=== PATIENT | male | born 1955 | race Caucasian/White ===

== ENCOUNTER 2020-06-28 09:43 | Outpatient (CLI) | payer BC | END 2020-06-28 09:44 | disposition home or self-care (01) | LOC: CSHMRI 09:43 | PROVIDERS: ATTEND Family Medicine | DX: M54.10 Radiculopathy, site unspecified (principal); Z98.890 Other specified postprocedural states; M48.061 Spinal stenosis, lumbar region without neurogenic claudication; M51.26 Other intervertebral disc displacement, lumbar region; M51.86 Other intervertebral disc disorders, lumbar region | CPT/HCPCS: 72158 ==

== ENCOUNTER 2021-04-20 12:24 | Outpatient (CLI) | payer MEDICARE, BC | END 2021-04-20 12:25 | disposition home or self-care (01) | LOC: CSHCT 12:24 | PROVIDERS: ATTEND Family Medicine | DX: R91.8 Other nonspecific abnormal finding of lung field (principal); J18.0 Bronchopneumonia, unspecified organism | CPT/HCPCS: 71250 ==

== ENCOUNTER 2021-08-02 13:56 | Outpatient (CLI) | payer MEDICARE, BC ==
[2021-08-03 11:56] LABS: SARS-CoV-2 PCR by NAA Not Detected (NotDetected)
== END 2021-08-02 13:57 | disposition home or self-care (01) ==
LOC: CSHLAB 13:56
PROVIDERS: ATTEND Internal Medicine Hematology & Oncology
DX: Z20.822 Contact with and (suspected) exposure to COVID-19 (principal)
CPT/HCPCS: U0003; U0005

== ENCOUNTER 2021-08-06 07:25 | Day surgery (SDC) | payer MEDICARE, BC ==
[2021-08-06 09:47] VITALS: BP 121/61; TEMP 97.7
[2021-08-06] MEDS ORDERED: Fentanyl 100 MCG/2 ML VIAL ONE (09:55)
[2021-08-06] MEDS ORDERED: Midazolam HCl 2 mg/2 ml Vial ONE (09:56)
[2021-08-06] MEDS ORDERED: Lidocaine 1% PF 5 ML VIAL ONE (10:22)
== END 2021-08-06 11:50 | disposition home or self-care (01) ==
LOC: CSHCT 07:25
PROVIDERS: ATTEND Internal Medicine Hematology & Oncology
PROC: 07DR3ZX Extraction of Iliac Bone Marrow, Percutaneous Approach, Diagnostic (ICD-10-PCS; principal; 2021-08-06)
DX: D61.811 Other drug-induced pancytopenia (principal); C34.82 Malignant neoplasm of overlapping sites of left bronchus and lung
CPT/HCPCS: 77012; 77386; 88184; 88237; 88264; 88280; 99152; J1642; J2250; J3010

== ENCOUNTER 2021-10-19 13:21 | Emergency (ER) | payer MEDICARE, BC ==
[~2021-10-19 13:21] MED LIST: Iopamidol 370 76% 100 ML VIAL ONE
[2021-10-19 14:21] LABS: Hemoglobin 6.9 g/dL (13.5-17.5); Mean Corpuscular HGB CONC 33.3 g/dL (32.0-36.0); Mean Corpuscular Hemoglobin 35.4 pg (27.0-33.0); Mean Corpuscular Volume 106.2 fl (81.2-95.1); Platelet Count 48 10x3/uL (150-450); RBC Distribution Width 16.7 % (11.5-14.5); Red Blood Cell (RBC) Count 1.95 10x6/uL (4.32-5.72)
[2021-10-19 14:32] LABS: ALT (SGPT) 25 U/L (8-55); AST (SGOT) 31 U/L (5-34); Albumin 3.8 g/dL (3.4-4.8); Alkaline Phosphatase 91 U/L (40-110); Anion Gap 15 mmol/L (10-20); BUN (Urea Nitrogen) 21 mg/dL (8.4-25.7); Bilirubin, Total 1.3 mg/dL (0.2-1.2); Calc. Creatinine Clearance 0 mL/min (70-130); Calcium 8.7 mg/dL (7.8-10.44); Carbon Dioxide 25 mmol/L (23-31); Chloride 103 mmol/L (98-107); Estimated GFR 91; Globulin 3.2 g/dL (2.4-3.5); Glucose 138 mg/dL (80-115); Potassium 3.9 mmol/L (3.5-5.1); Sodium 139 mmol/L (136-145)
[2021-10-19 14:40] LABS: SARS-CoV-2 NAA Rapid Test Not Detected (NotDetected)
[2021-10-19 14:43] LABS: MDiff Complete? YES
[2021-10-19 14:44] LABS: CKMB 2.7 ng/mL (0-6.6)
[2021-10-19 14:51] LABS: Eosinophils 4 % (0-10); Lymphocytes 32 % (21-51); Monocytes 14 % (0-10); Neutrophil 48 % (42-75); Reactive Lymphocytes 2 % (0-10)
[2021-10-19 14:55] LABS: Anisocytosis SLIGHT = 6-15 cells (100X) (0-5/hpf); Hypochromia SLIGHT = 6-15 cells (100X) (0-5/hpf); Macrocytosis SLIGHT = 6-15 cells (100X) (0-5/hpf); Polychromasia SLIGHT = 2-3 cells (100X) (0-2/hpf)
[2021-10-19 14:56] LABS: Platelet Morphology Comment Appears Decreased; Toxic Granulation SLIGHT
[2021-10-19 16:59] LABS: Troponin I 0.024 ng/mL (< 0.028)
== END 2021-10-19 18:25 | disposition home or self-care (01) ==
LOC: CSHERS 13:21
DX: C34.91 Malignant neoplasm of unspecified part of right bronchus or lung (principal); D61.818 Other pancytopenia; D46.9 Myelodysplastic syndrome, unspecified; I25.10 Atherosclerotic heart disease of native coronary artery without angina pectoris; I10 Essential (primary) hypertension; E78.5 Hyperlipidemia, unspecified; E11.9 Type 2 diabetes mellitus without complications; Z20.822 Contact with and (suspected) exposure to COVID-19; Z87.891 Personal history of nicotine dependence; Z79.899 Other long term (current) drug therapy; Z79.82 Long term (current) use of aspirin; Z79.84 Long term (current) use of oral hypoglycemic drugs; C34.82 Malignant neoplasm of overlapping sites of left bronchus and lung; D46.1 Refractory anemia with ring sideroblasts; D70.8 Other neutropenia
CPT/HCPCS: 36430; 70553; 71275; 80053; 82553; 83605; 83880; 84484 ×2; 85025; 86850; 86900; 86901; 86920; 93005; 94760; 99285; P9016; U0002; 36415; J7620; Q9967

== ENCOUNTER 2022-06-05 10:30 | Outpatient (CLI) | payer MEDICARE, BC | END 2022-06-05 10:31 | disposition home or self-care (01) | LOC: CSHMRI 10:30 | PROVIDERS: ATTEND Thoracic Surgery (Cardiothoracic Vascular Surgery) | DX: I65.23 Occlusion and stenosis of bilateral carotid arteries (principal) | CPT/HCPCS: 70553; 82565 ==

== ENCOUNTER 2022-11-02 22:12 | Emergency (ER) | payer MEDICARE, BC ==
[2022-11-02] MEDS ORDERED: Ipratropium/Albuterol 3 ML NEB ONE (23:02)
[2022-11-02] MEDS ORDERED: Albuterol 2.5 MG/0.5 ML NEB ONE (23:02)
[2022-11-02 23:06] LABS: #Monocytes 0.4 10x3/uL (0.0-1.1); #Neutrophils 2.3 10x3/uL (1.5-8.4); %Basophils 0.3 % (0.0-2.0); %Eosinophils 0.9 % (0.0-6.0); %Lymphocytes 19.7 % (18.0-47.0); %Monocytes 11.7 % (0.0-10.0); %Neutrophils 66.5 % (40.0-75.0); Hematocrit 37.9 % (38.8-50.0); Hemoglobin 12.1 g/dL (13.5-17.5); Mean Corpuscular HGB CONC 31.9 g/dL (32.0-36.0); Mean Corpuscular Hemoglobin 32.2 pg (27.0-33.0); Mean Corpuscular Volume 100.8 fl (81.2-95.1); Mean Platelet Volume 10.5 fl (7.4-10.4); Platelet Count 94 10x3/uL (150-450); RBC Distribution Width 16.6 % (11.5-14.5); Red Blood Cell (RBC) Count 3.76 10x6/uL (4.32-5.72); White Blood Cell (WBC) Count 3.5 10x3/uL (3.5-10.5)
[2022-11-02 23:16] LABS: ALT (SGPT) 20 U/L (8-55); AST (SGOT) 23 U/L (5-34); Albumin 4.2 g/dL (3.4-4.8); Alkaline Phosphatase 86 U/L (40-110); Anion Gap 20 mmol/L (10-20); BUN (Urea Nitrogen) 19 mg/dL (8.4-25.7); Bilirubin, Total 0.6 mg/dL (0.2-1.2); Calc. Creatinine Clearance 0 mL/min (70-130); Carbon Dioxide 20 mmol/L (23-31); Chloride 108 mmol/L (98-107); Estimated GFR 73; Globulin 2.8 g/dL (2.4-3.5); Glucose 230 mg/dL (80-115); Potassium 3.6 mmol/L (3.5-5.1); Sodium 144 mmol/L (136-145)
[2022-11-02] MEDS ORDERED: Magnesium 2 GM/50 ML BAG (IN WATER) ONE (23:33)
[2022-11-02] MEDS ORDERED: methylPREDNISolone Sod Succ/PF 125 MG/2 ML VIAL ONE (23:33)
[2022-11-03] MEDS ORDERED: Albuterol 2.5 MG/0.5 ML NEB ONE (00:14)
[2022-11-03] MEDS ORDERED: Ipratropium/Albuterol 3 ML NEB ONE (00:14)
[2022-11-03] MEDS ORDERED: HumaLOG 300 UNITS/3 ML VIAL SC SCH (02:30)
== END 2022-11-03 03:47 | disposition short-term general hospital (02) ==
LOC: CSHERS 22:12
DX: R06.02 Shortness of breath (principal); R09.02 Hypoxemia; E78.00 Pure hypercholesterolemia, unspecified; E11.9 Type 2 diabetes mellitus without complications; Z87.891 Personal history of nicotine dependence; Z79.85 Long-term (current) use of injectable non-insulin antidiabetic drugs; Z79.899 Other long term (current) drug therapy; Z79.82 Long term (current) use of aspirin
CPT/HCPCS: 71045; 80053; 83880; 84484; 85025; 93005; 94644; 94645; 94760; J1815; J2930; J3475; J7611; J7620

== ENCOUNTER 2023-01-22 12:07 | Outpatient (CLI) | payer MEDICARE, BC | END 2023-01-22 12:08 | disposition home or self-care (01) | LOC: CSHRAD 12:07 | PROVIDERS: ATTEND Internal Medicine Hematology & Oncology | DX: R06.9 Unspecified abnormalities of breathing (principal); Z99.81 Dependence on supplemental oxygen | CPT/HCPCS: 71046 ==